=== PATIENT | male | born 2000 | race Caucasian/White ===

== ENCOUNTER 2024-04-21 16:34 | Outpatient (CLI) | payer OTHER, SELFPAY | END 2024-04-21 16:35 | disposition home or self-care (01) | PROVIDERS: PCP Physician Assistant Medical; Visit Provider Physician Assistant Medical | DX: Z00.00 Encounter for general adult medical examination without abnormal findings (principal); F64.0 Transsexualism; Z79.899 Other long term (current) drug therapy | CPT/HCPCS: 80053; 80061; 82670; 84270; 84402; 84403; 84443 ==